=== PATIENT | male | born 1990 | race Caucasian/White ===

== ENCOUNTER 2018-01-18 23:10 | Emergency (ER) | payer SELFPAY ==
[~2018-01-18 23:10] MED LIST: ANTIBIOTIC; CEPH500C24 PO; CYCL10TA29 PO; DICY-42 PO; IBUP-136 PO; IBUP800T37 PO; LOR5/325 PO; NO MEDS; ONDA4TAB PO; OXYC-865 PO; PROM-110 PO; SEPTRA PO; SULF-197 PO; TOBOD OD
[2018-01-18 23:13] VITALS: BP 113/64
--- NOTE | 2018-01-18 23:21 | ER Report ---
History and Physical Time Seen By MD: 23:20 Hx. of Stated Complaint: helping a friend skin a han, lacerated rt thumb HPI/ROS CHIEF COMPLAINT: Right thumb laceration HISTORY OF PRESENT ILLNESS: This is a 27-year-old male. He is helping a friend skin a han. Cut his right thumb on the lateral edge. No nail involvement. Bleeding briskly. Last tetanus about 3 years ago. Allergies: Coded Allergies: No Known Drug Allergies (Unverified , 03/28/17) Home Meds Reported Medications Sulfamethoxazole/Trimethoprim (BACTRIM 400-80 MG TABLET) 1 Each Tablet, 1 TAB PO Q12H 03/28/17 Discontinued Scripts Oxycodone Hcl/Acetaminophen (PERCOCET 5-325 MG TABLET) 1 Each Tablet, 1 EACH PO Q4-6H PRN for PAIN, #15 Prov:JASON MELISSA Delio DO 03/28/17 Reviewed Nurses Notes: Yes Hx Smoking: No Smoking Status: Never Smoker Hx Substance Use Disorder: No Hx Alcohol Use: No Constitutional Vital Sign - Last 24 Hours 01/18/18 23:13 Temp 97.9 Pulse 61 Resp 14 B/P (MAP) 113/64 Pulse Ox 94 O2 Delivery Room Air Physical Exam Gen.: Alert, no distress. Skin: Small 1 cm laceration along the lateral edge of the thumb Cardiovascular: Normal cap refill Musculoskeletal: No tendon compromise normal motion and motor function. Neuro: Normal sensation Medical Decision Making ED Course/Re-evaluation ED Course Procedure: Laceration Repair Verbal consent from patient after discussing repair options, risks and benefits. Wound cleaned extensively with Hibiclens and saline. Anesthesia: Digital block using 1% lidocaine without epinephrine and 0.5% bupivacaine without epinephrine. Location: Lateral thumb. Length: 1 cm. Character: Linear through the skin. There were no deep structures involved. No tendon injury was identified. Wound repair: 3 interrupted 4-0 Ethilon sutures. The wound repair was simple and performed by myself. Wound care instructions discussed. Sutures need to be removed in 7 days. He is on Bactrim and will increase this to twice a day for the next 5 days and then go back to once a day. Decision to Disposition Date: Jan 18, 2018 Decision to Disposition Time: 23:56 Depart Departure Latest Vital Signs Vital Signs Date Time Temp Pulse Resp B/P (MAP) Pulse Ox O2 Delivery O2 Flow Rate FiO2 01/18/18 23:13 97.9 61 14 113/64 94 Room Air Impression: Primary Impression: Thumb laceration Condition: Improved Disposition: HOME OR SELF-CARE Patient Instructions: Laceration (ED) Additional Instructions: Wound Care: Wash the wound once a day with soap and water. Dry the wound and apply a small amount of antibiotic ointment with a clean dressing. If the dress ing becomes wet or dirty, repeat cleaning and dressing as above. No soaking the wound; no swimming. Stitches need to be removed in 7 days. Pain Control: Use Tylenol or ibuprofen for pain. Using and ice pack can help reduce swelling. Antibiotic: Increased her Bactrim from once a day to twice a day for the next 5 days and then you can resume taking it once a day Problem Qualifiers Primary Impression: Thumb laceration Encounter type: initial encounter Damage to nail status: without damage Foreign body presence: without foreign body Laterality: right Qualified Codes: S61.011A - Laceration without foreign body of right thumb without damage to nail, initial encounter RUI HARDY MD Jan 18, 2018 23:20
== END 2018-01-19 00:12 | disposition home or self-care (01) ==
LOC: ER 23:40
DX: S61.011A Laceration without foreign body of right thumb without damage to nail, initial encounter (principal)
CPT/HCPCS: 99282